=== PATIENT | female | born 1975 | race Caucasian/White ===

== ENCOUNTER 2020-12-26 13:59 | Emergency (ER) | payer MEDICAID, SELFPAY ==
[2020-12-26 14:00] VITALS: BP 137/85; PULSE 118; RESP 16; TEMP 37; O2SAT 98; BMI 55.2
--- NOTE | 2020-12-26 14:15 | EDS_ITS ---
HPI History of Present Illness Chief Complaint: Headache Detail of Chief Complaint: Headache woke up with this morning and right knee pain x2 to 3 days Informant: patient Onset/Context/Timing Current Severity: 12/22 Narrative Narrative: Patient presents to the emergency department 2 complaints. Patient states that she injured her right knee 2 or 3 days ago by just pivoting and feeling a pop in her knee. Knee will intermittently pop in relieves the pressure. Patient feels like sometimes the knee catches. Patient has had problems with that knee before giving out. Patient did not sustain a fall. She denies head injury. She woke up with a headache this morning that has left parietal and throbbing. She rates it a 7 out of 10. Patient took some Tylenol and try to take a nap but woke up with continued headache. She had some mild nausea but no vomiting. She complains of some mild photophobia. Patient does have history of migraines but she was not sure if this was a migraine so she did not take her Imitrex. Prior similar symptoms: Yes [facility] Medical History (Updated 12/26/20 @ 15:[address] Shamika William, DO) Anxiety Hypothyroidism Migraines Home Medications bupropion HCl 300 mg PO DAILY 02/07/14 [History Last Taken Unknown] levothyroxine 50 mcg PO DAILY 02/07/14 [History Last Taken Unknown] naproxen 500 mg PO BID #14 tab 12/26/20 [Rx Last Taken Unknown] Allergy/AdvReac Type Severity Reaction Status Date / Time oxycodone HCl Allergy Anaphylaxis Verified 12/26/20 14:00 [From OxyContin] Social History Smoking Status: Current every day smoker tobacco type: cigarettes ROS ROS ED Constitutional Constitutional ED: Reports systems reviewed and no addt'l complaints, except as documented; Denies body ache(s), change in weight or chills Eyes Eyes: Denies acute decrease in peripheral vision, change in vision, double vision or loss of vision ENT ENT ED: Reports none; Denies ear pain, lip swelling, loss taste/smell, neck pain, otalgia or sore throat Cardiovascular Cardiovascular: Reports none; Denies abdominal pain, chest pain with activity, leg edema, lightheadedness, palpitations, rapid heart rate or syncope Respiratory/Chest Respiratory/Chest: Reports none; Denies change in mental status, dry cough, dyspnea, hemoptysis, shortness of breath at rest or shortness of breath with exertion Gastrointestinal Gastrointestinal: Reports none; Denies abdominal pain, change in stool character, diarrhea, hematemesis, hematochezia, melena, rectal bleeding or vomiting Genitourinary Genitourinary ED: Reports none; Denies abdominal discomfort, anuria, dysuria, genital pain or polyuria Musculoskeletal Musculoskeletal: Reports none and other Details: Right knee pain ; Denies arthralgias, back pain, difficulty walking, extremity pain, muscle weakness or myalgias Integumentary Reports none; Denies abscess or rash Neurologic Neurologic: Reports none and headache(s); Denies abnormal gait, confusion, focal weakness, frequent falls, loss of vision, numbness, paresthesias, radicular pain, vertigo or weakness Psychiatric Psychiatric: Reports systems reviewed and no addt'l complaints, except as documented and none; Denies behavioral changes, confusion, difficulty concentrating, hallucinations, suicidal ideation, tactile hallucinations or visual hallucinations Endocrine Endocrinology: Denies none, cold intolerance, excessive sweating, fatigue or heat intolerance Hematologic/Lymphatic Hematologic/Lymphatic: Reports none; Denies anemia, easy bleeding or easy bruising Allergic/Immunologic Allergic/Immunologic ED: Denies as per HPI, none, lip swelling, mouth swelling, throat swelling, tongue swelling or hives EXAM Physical Exam Const Vital Signs: 12/26/20 14:00 Temperature 98.6 F Temperature Source Temporal Pulse Rate 118 H Respiratory Rate 16 Blood Pressure 137/85 H Blood Pressure Mean 102 Pulse Ox 98 Oxygen Delivery Method Room Air Positive well nourished and well developed General Appearance ED: well developed and NAD HEENT Reports TM's clear and moist mucous membranes normocephalic and atraumatic; Negative for trauma or tenderness Tympanic Membrane ED: Yes TM's clear Eyes PERRL and EOMs intact bilaterally General Eye ED: Negative for pale conjunctiva or scleral icterus Neck no lymphadenopathy, supple and no JVD General: Negative for tenderness Chest Wall inspection of chest normal and palpation of chest normal Chest: Negative for tenderness Resp normal respiratory effort and clear to auscultation bilaterally Effort and Inspection: Negative for respiratory distress or pain with movement Auscultation: Negative for rhonchi, wheezes or diminished lung sounds Cardio regular rate, regular rhythm, S1 normal heart sound, S2 normal heart sound and no murmurs Peripheral Pulses: pulses 2+ throughout GI normal to inspection, nondistended, normoactive bowel sounds, soft to palpation, non-tender, non-distended and no masses Back/Spine no CVA tenderness and no thoracic nor lumbar tenderness Extremity normal to inspection Extremity Narrative: Patient has diffuse tenderness palpation over the joint line of the right knee medially and laterally as well as inferior to patella. She has pain with flexion extension at the knee. No obvious joint effusion noted. Ligamentous exam very difficult as patient has large body habitus and she complains of pain with any range of motion. No obvious ligamentous laxity noted with varus or valgus stress. General Extremety ED: Negative for edema General Extremity: Negative for edema Neuro oriented x3, CN's II-XII intact bilaterally, no sensory deficits noted and gait normal Neuro Narrative: Finger-nose and heel guzman testing within normal limits, negative Romberg, negative for drift, fundi benign Sensorium / Orientation: awake, alert, oriented to person, oriented to place and oriented to time Motor Exam: strength 5/5 throughout and strength abnormal Psych mental status grossly normal Skin no rashes or lesions noted and no wounds MDM MDM MDM Narrative Medical decision making narrative: I suspect patient's headache may be tension or possibly migraine. She was feeling improved after treatment. She was medicated with Reglan, Benadryl, Toradol and a liter normal same fluid bolus. At this point I do not see any fractures or dislocations involving the knee. I suspect possibly a meniscus tear. Patient will be given a knee immobilizer. She did not want crutches. She will be referred to orthopedics for follow-up. Radiography Diagnostic Testin view x-rays of the right knee obtained interpreted by myself as no acute fractures or dislocations. Official report from radiology pending. Discharge Plan Triage Chief Complaint: Headache ED Provider: Shamika William Dx/Rx/DC Orders Clinical Impression: Cephalalgia, Right knee sprain Instructions: ED Headache, Tension, ED Knee Sprain Prescriptions: New naproxen 500 MG tablet 500 mg PO BID Qty: 14 RF: 0 No Action levothyroxine 50 MCG tablet 50 mcg PO DAILY RF: 0 bupropion HCl 300 MG tablet extended release 24 hr 300 mg PO DAILY RF: 0 Primary Care Provider: Samuel Ray Referrals: Samuel Ray MD [Primary Care Provider] - Smith Noel DO [STAFF PHYSICIAN] - 3-5 Days
[2020-12-26] MEDS: Ketorolac 30 MG/ML Syringe IV (14:32)
[2020-12-26] MEDS: 0.9% Normal Saline 1,000 ML 1000 ML IV (14:32)
[2020-12-26] MEDS: DiphenhydrAMINE 50 MG/ML Syringe 25 MG IV (14:33)
[2020-12-26] MEDS: Metoclopramide 10 MG/2 ML Vial IV (14:34)
--- NOTE | 2020-12-26 14:54 | RAD_ITS ---
STUDY: X-RAY - RIGHT KNEE REASON FOR EXAM: Female, 45 years old. Injury TECHNIQUE: 4 view(s) of the knee. COMPARISON: None. FINDINGS: Normal visualized distal femur. Normal visualized proximal tibia and fibula. Normal proximal tibiofibular articulation. Normal medial femorotibial compartment. Normal lateral femorotibial compartment. Normal patellofemoral articulation. The soft tissue structures are unremarkable. RAD/Knee 4 or More Views IMPRESSION: Normal x-ray examination of the knee. Electronically Signed: Luis Myles MD at 15:19 EDT , Service support ,
== END 2020-12-26 15:34 | disposition home or self-care (01) ==
LOC: ED 14:37
PROVIDERS: Emergency Provider Emergency Medicine; PCP Family Medicine
DX: R51.9 Headache, unspecified (principal); S83.91XA Sprain of unspecified site of right knee, initial encounter; F17.210 Nicotine dependence, cigarettes, uncomplicated; E03.9 Hypothyroidism, unspecified; X58.XXXA Exposure to other specified factors, initial encounter; Z79.899 Other long term (current) drug therapy
CPT/HCPCS: 73564; 96374; 96375; 99284; J7030

== ENCOUNTER → 2022-04-26 | Outpatient (CLI) | payer MEDICAID, SELFPAY ==
--- NOTE | 2022-04-26 07:35 | MRI_ITS ---
STUDY: MRI RIGHT KNEE REASON FOR EXAM: Female, 47 years old. UNILATERAL PRIMARY OSTEOARTHRITIS,RIGHT KNEE PAIN MEDIAL KNEE/ALL OVER KNEE. *SOME DIFFICULTY HOLDING STILL FOR EXAM DUE TO SPASMS. XR RT KNEE 12/26/20 TECHNIQUE: Standardized fat and water weighted pulse sequences were obtained in all 3 orthogonal planes. COMPARISON: X-ray of the right knee dated December 26, 2020 FINDINGS: Normal medial meniscus. There is diffuse, greater than 50% thickness articular cartilage loss of the medial femorotibial compartment. A 4.4 mm region of near full-thickness cartilage loss is demonstrated in the midline of the medial femoral condyle. Normal medial femoral condyle and tibial plateau. Normal medial collateral ligamentous complex (MCL). Normal distal semimembranosus, gracilis and semitendinosus tendons. Normal lateral meniscus. There is diffuse, less than 50% thickness articular cartilage loss of the lateral femorotibial compartment. Normal lateral femoral condyle and tibial plateau. Normal proximal tibiofibular articulation. Normal lateral collateral (fibular) ligament. Normal popliteus tendon. Normal biceps femoris tendon. Normal anterior cruciate ligament (ACL). Normal posterior cruciate ligament (PCL). Normal congruent patellofemoral articulation. Normal hyaline cartilage of the patellofemoral compartment. Normal medial and lateral patellar retinaculum. Normal quadriceps tendon. Normal patellar tendon. Normal Hoffa''s fat pad. There is a small volume joint effusion. A small to moderate size 5.55 cm contained Orozco''s cyst is also present. The soft tissues are unremarkable. The otherwise visualized osseous structures are unremarkable. MRI/Lower Ext Joint Only (Routine) IMPRESSION: 1. Moderate cartilage thinning in the medial compartment, and addition to a 4.4 mm region of near full-thickness cartilage loss in the midline of the medial femoral condyle 2. Small to moderate-sized contained Orozco''s cyst cyst. Electronically Signed: Stalin Nagy MD at 11:41 EST ,
== END | disposition home or self-care (01) ==
LOC: MRI 07:13
PROVIDERS: PCP Family Medicine; Visit Provider Physician Assistant
DX: M17.11 Unilateral primary osteoarthritis, right knee (principal)
CPT/HCPCS: 73721